=== PATIENT | female | born 1985 | race Caucasian/White ===

== ENCOUNTER 2022-03-18 18:38 | Emergency (ER) | payer SELFPAY ==
[~2022-03-18] VITALS: Ht 160 cm; Wt 90.7 kg
[2022-03-18] MEDS ORDERED: MELA3 PO (18:52)
[2022-03-18] MEDS ORDERED: FAMO10 PO (18:52)
== END 2022-03-18 21:10 | disposition home or self-care (01) ==
LOC: ER 18:38
DX: S93.402A Sprain of unspecified ligament of left ankle, initial encounter (principal); F17.290 Nicotine dependence, other tobacco product, uncomplicated; W17.2XXA Fall into hole, initial encounter; Y92.007 Garden or yard of unspecified non-institutional (private) residence as the place of occurrence of the external cause; Z88.5 Allergy status to narcotic agent; Z79.899 Other long term (current) drug therapy
CPT/HCPCS: 73610; A9270; J1885; J2405

== ENCOUNTER 2022-03-27 10:36 | Emergency (ER) | payer OTHER ==
[~2022-03-27] VITALS: Ht 160 cm; Wt 90.7 kg
[~2022-03-27 10:36] MED LIST: FAMO10 PO; MELA3 PO
== END 2022-03-27 12:18 | disposition home or self-care (01) ==
LOC: ER 10:36
DX: S93.402A Sprain of unspecified ligament of left ankle, initial encounter (principal); X58.XXXA Exposure to other specified factors, initial encounter; F17.290 Nicotine dependence, other tobacco product, uncomplicated
CPT/HCPCS: 73610; 99283-25